=== PATIENT | male | born 1940 | race Caucasian/White ===

== ENCOUNTER 2017-04-28 09:15 | Day surgery (SDC) | payer MEDICARE, BC ==
[2017-04-25 15:04] VITALS: BMI 25.9
[~2017-04-28 09:15] MED LIST: LACTATED RINGERS 1,000 ML IV SCH
[2017-04-28 10:20] VITALS: RESP 18; TEMP 98
[2017-04-28] MEDS ORDERED: LIDOCAINE 1% 20 ML VIAL (10MG/ML) FOR IV START INTRADERMA ONE (10:20)
[2017-04-28] MEDS ORDERED: PROPOFOL 10 MG/ML 20 ML VIAL IV ONE (10:50)
--- NOTE | 2017-04-28 11:17 | P.PCN ---
Date of Procedure: 04/28/17 Procedure(s) Performed: BRIEF HISTORY: Patient is a 77-year-old pleasant white male, scheduled for an elective colonoscopy as a part of evaluation of prior history of colon polyps. His last colostomy was 5 years ago. PROCEDURE PERFORMED: Colonoscopy with snare polypectomy. PREOPERATIVE DIAGNOSIS: history of colon polyps. IV sedation per Anesthesia. PROCEDURE: After informed consent was obtained, the patient, was brought into the endoscopy unit. IV sedation was administered by Anesthesia under continuous monitoring. Digital rectal examination was normal. Initially the Olympus CF- 160 flexible video colonoscope was then inserted in the rectum, gradually advanced into the cecum without any difficulty. Careful examination was performed as the scope was gradually being withdrawn. Ileocecal valve and the appendiceal orifice were visualized and appeared normal. Prep was excellent. In the base of the cecum there was a 5mm polyp that was removed by snare polypectomy. In the ascending colon there were 2 polyps both of which were sessile 1 cm in size removed by snare polypectomy. the rest of the ascending colon, transverse colon, descending colon, sigmoid colon, and rectum appeared normal.in the descending colon there was a 5 mm sessile polyp removed by snare polypectomy. Retroflexion was performed in the rectum and no lesions were seen. The patient tolerated the procedure well. IMPRESSION: 5 mm cecal polyp status post polypectomy. 1 cm 2 sessile ascending colon polyps status post polypectomy 5 mm sessile descending colon polyp status post polypectomy RECOMMENDATIONS: Findings of this examination were discussed with the patient as well as his family. He was advised to follow with the biopsy results. If the biopsy shows a tubalar adenoma, he can have a repeat colonoscopy in 3 years.
[2017-04-28 11:47] VITALS: BP 121/58; PULSE 74
== END 2017-04-28 12:09 | disposition home or self-care (01) ==
LOC: ORWHC2ENDO 09:15
PROVIDERS: ATTEND Internal Medicine Gastroenterology
DX: Z12.11 Encounter for screening for malignant neoplasm of colon (principal); D12.2 Benign neoplasm of ascending colon; D12.0 Benign neoplasm of cecum; D12.4 Benign neoplasm of descending colon; Z86.010 Personal history of colon polyps; E78.5 Hyperlipidemia, unspecified; J44.9 Chronic obstructive pulmonary disease, unspecified; C61 Malignant neoplasm of prostate; K21.9 Gastro-esophageal reflux disease without esophagitis; F17.210 Nicotine dependence, cigarettes, uncomplicated; Z79.82 Long term (current) use of aspirin; Z79.899 Other long term (current) drug therapy; Z79.891 Long term (current) use of opiate analgesic
CPT/HCPCS: 88305; 45385; J2704

== ENCOUNTER 2017-10-14 15:40 | Inpatient (IN) | payer MEDICARE, BC ==
[2017-10-14] MEDS ORDERED: SODIUM CHLORIDE 0.9% 500 ML IV STA (15:49)
--- NOTE | 2017-10-14 15:51 | ED ---
General Adult HPI - General Stated complaint: Memory loss Time Seen by Provider: 10/14/17 15:40 Source: RN notes reviewed - History of Present Illness Initial comments: This is a 77-year-old male who presents emergency Department with his . states at about 1:30 she was talking to him and he had no recollection of anything prior in the day. And he continues to have no recollection of anything that has occurred since that time. states he doesn't remember leaving the house. Patient does not remember the day currently. She has no headache patient denies any pain anywhere. Patient denies any numbness or weakness. states she's had no speech disturbance and does not appear to be any visual disturbance. Patient is able to ambulate without problem. Patient denies any chest pain palpitations difficulty breathing shortness of breath. Patient denies any abdominal pain patient denies nausea vomiting diarrhea. Patient denies any recent fever chills or cough. Patient has had surgery on his left carotid - Related Data Home Medications Medication Instructions Recorded Confirmed Aspirin [Adult Low Dose Aspirin EC] 81 mg PO DAILY 04/25/17 10/14/17 Calcium 1200 / D-3 1000 1 tab PO DAILY 04/25/17 10/14/17 Cholecalciferol [Vitamin D3] 5,000 unit PO DAILY 04/25/17 10/14/17 Cyanocobalamin [Vitamin B-12] 500 mcg PO DAILY 04/25/17 10/14/17 Diazepam [Valium] 5 mg PO HS PRN 04/25/17 10/14/17 Gabapentin [Neurontin] 300 mg PO TID 04/25/17 10/14/17 HYDROcodone/APAP 5-325MG [[place] 1 tab PO HS PRN 04/25/17 10/14/17 5-325] Hydrocodone Bitartrate [Hysingla 20 mg PO DAILY 04/25/17 10/14/17 ER] Multivitamins, Thera [Multivitamin 1 tab PO DAILY 04/25/17 10/14/17 (formulary)] Ranitidine HCl [Zantac] 300 mg PO HS 04/25/17 10/14/17 Simvastatin [Zocor] 20 mg PO HS 04/25/17 10/14/17 Allergies Allergy/AdvReac Type Severity Reaction Status Date / Time No Known Allergies Allergy Verified 10/14/17 16:07 Review of Systems ROS Statement: Those systems with pertinent positive or pertinent negative responses have been documented in the HPI. ROS Other: All systems not noted in ROS Statement are negative. Past Medical History Past Medical History: Cancer, COPD, GERD/Reflux Additional Past Medical History / Comment(s): HX OF PROSTATE CANCER., CHRONIC BACK PAIN & SPASMS, RECEIVES INJECTIONS FOR PAIN FROM DR ABRAHAM., NUMBNESS BOTH LEGS. History of Any Multi-Drug Resistant Organisms: None Reported Past Surgical History: Back Surgery, Prostate Surgery Past Anesthesia/Blood Transfusion Reactions: No Reported Reaction Past Psychological History: No Psychological Hx Reported Smoking Status: Current every day smoker Past Alcohol Use History: None Reported Additional Past Alcohol Use History / Comment(s): SMOKES 1/2 PPD, (DOWN FROM 1 PPD), SMOKING SINCE 11 YEARS OLD (SMOKING 69 YEARS) Past Drug Use History: None Reported - Past Family History Mother Family Medical History: No Reported History General Exam - General Exam Comments Initial Comments: GENERAL: Patient is well-developed and well-nourished. Patient is nontoxic and well- hydrated and is in no acute distress. ENT: Neck is soft and supple. No significant lymphadenopathy is noted. Oropharynx is clear. Moist mucous membranes. Neck has full range of motion without eliciting any pain. EYES: The sclera were anicteric and conjunctiva were pink and moist. Extraocular movements were intact and pupils were equal round and reactive to light. Eyelids were unremarkable. PULMONARY: Unlabored respirations. Good breath sounds bilaterally. No audible rales rhonchi or wheezing was noted. CARDIOVASCULAR: There is a regular rate and rhythm without any murmurs gallops or rubs. ABDOMEN: Soft and nontender with normal bowel sounds. No palpable organomegaly was noted. There is no palpable pulsatile mass. SKIN: Skin is clear with no lesions or rashes and otherwise unremarkable. NEUROLOGIC: Patient is alert and oriented 2. Cranial nerves II through XII are grossly intact. Motor and sensory are also intact. Normal speech, volume and content. Symmetrical smile. Patient has no memory of the date or any event that has occurred today. MUSCULOSKELETAL: Normal extremities with adequate strength and full range of motion. No lower extremity swelling or edema. No calf tenderness. LYMPHATICS: No significant lymphadenopathy is noted PSYCHIATRIC: Normal psychiatric evaluation. Course Vital Signs 10/14/17 15:46 Temperature 98.2 F Pulse Rate 76 Respiratory 18 Rate Blood Pressure 206/91 O2 Sat by Pulse 98 Oximetry Medical Decision Making - Medical Decision Making I spoke with and he did not want us to call a code stroke because the NIH scale is only 1. EKG shows a sinus rhythm at 73 bpm LA interval is 214 QRS is 96 QT interval 418 QTC is 460. Patient's EKG shows no ST segment elevation or depression or T wave abnormalities are noted. Patient's CT of the brain shows no acute abnormality. I spoke with Dr. Vilchis I admitted the patient I wrote admitting orders I consult the neurology - Lab Data Result diagrams: 10/14/17 16:02 10/14/17 16:02 Lab Results 10/14/17 10/14/17 10/14/17 Range/Units 15:54 16:02 16:02 WBC 6.7 (3.8-10.6) k/uL RBC 5.15 (4.30-5.90) m/uL Hgb 16.1 (13.0-17.5) gm/dL Hct 47.9 (39.0-53.0) % MCV 93.1 (80.0-100.0) fL MCH 31.3 (25.0-35.0) pg MCHC 33.7 (31.0-37.0) g/dL RDW 13.2 (11.5-15.5) % Plt Count 242 (150-450) k/uL Neutrophils % 64 % Lymphocytes % 27 % Monocytes % 4 % Eosinophils % 3 % Basophils % 1 % Neutrophils # 4.3 (1.3-7.7) k/uL Lymphocytes # 1.8 (1.0-4.8) k/uL Monocytes # 0.3 (0-1.0) k/uL Eosinophils # 0.2 (0-0.7) k/uL Basophils # 0.0 (0-0.2) k/uL PT (9.0-12.0) sec INR (<1.2) APTT (22.0-30.0) sec Sodium 142 (137-145) mmol/L Potassium 4.3 (3.5-5.1) mmol/L Chloride 107 (98-107) mmol/L Carbon Dioxide 23 (22-30) mmol/L Anion Gap 12 mmol/L BUN 10 (9-20) mg/dL Creatinine 0.60 L (0.66-1.25) mg/dL Est GFR (CKD-EPI)AfAm >90 (>60 ml/min/1.73 sqM) Est GFR (CKD-EPI)NonAf >90 (>60 ml/min/1.73 sqM) Glucose 84 (74-99) mg/dL POC Glucose (mg/dL) 83 (75-99) mg/dL POC Glu [employer] Mckenzie Mederos Calcium 9.3 (8.4-10.2) mg/dL Total Bilirubin 0.6 (0.2-1.3) mg/dL AST 25 (17-59) U/L ALT 36 (21-72) U/L Alkaline Phosphatase 47 (38-126) U/L Total Protein 6.6 (6.3-8.2) g/dL Albumin 4.2 (3.5-5.0) g/dL 10/14/17 Range/Units 16:02 WBC (3.8-10.6) k/uL RBC (4.30-5.90) m/uL Hgb (13.0-17.5) gm/dL Hct (39.0-53.0) % MCV (80.0-100.0) fL MCH (25.0-35.0) pg MCHC (31.0-37.0) g/dL RDW (11.5-15.5) % Plt Count (150-450) k/uL Neutrophils % % Lymphocytes % % Monocytes % % Eosinophils % % Basophils % % Neutrophils # (1.3-7.7) k/uL Lymphocytes # (1.0-4.8) k/uL Monocytes # (0-1.0) k/uL Eosinophils # (0-0.7) k/uL Basophils # (0-0.2) k/uL PT 10.0 (9.0-12.0) sec INR 1.0 (<1.2) APTT 22.6 (22.0-30.0) sec Sodium (137-145) mmol/L Potassium (3.5-5.1) mmol/L Chloride (98-107) mmol/L Carbon Dioxide (22-30) mmol/L Anion Gap mmol/L BUN (9-20) mg/dL Creatinine (0.66-1.25) mg/dL Est GFR (CKD-EPI)AfAm (>60 ml/min/1.73 sqM) Est GFR (CKD-EPI)NonAf (>60 ml/min/1.73 sqM) Glucose (74-99) mg/dL POC Glucose (mg/dL) (75-99) mg/dL POC Glu [employer] ID Calcium (8.4-10.2) mg/dL Total Bilirubin (0.2-1.3) mg/dL AST (17-59) U/L ALT (21-72) U/L Alkaline Phosphatase (38-126) U/L Total Protein (6.3-8.2) g/dL Albumin (3.5-5.0) g/dL Disposition Clinical Impression: CVA (cerebral vascular accident) Disposition: ADMITTED IP TO THIS HOSP Referrals: Holli Velasquez MD [Primary Care Provider] - 1-2 days Time of Disposition: 16:42
[2017-10-14 15:56] LABS: Glucose,Whole Blood 83 mg/dL (75-99)
[2017-10-14 16:16] LABS: Basophils % (A) 1 %; Eosinophils # (A) 0.2 k/uL (0-0.7); Eosinophils % (A) 3 %; HCT 47.9 % (39.0-53.0); HGB 16.1 gm/dL (13.0-17.5); Lymphocytes # (A) 1.8 k/uL (1.0-4.8); Lymphocytes % (A) 27 %; MCH 31.3 pg (25.0-35.0); MCHC 33.7 g/dL (31.0-37.0); MCV 93.1 fL (80.0-100.0); Mean Platelet Volume 6.6; Monocytes # (A) 0.3 k/uL (0-1.0); Monocytes % (A) 4 %; Neutrophils # (A) 4.3 k/uL (1.3-7.7); Neutrophils % (A) 64 %; Platelet Count 242 k/uL (150-450); RBC 5.15 m/uL (4.30-5.90); RDW 13.2 % (11.5-15.5); WBC 6.7 k/uL (3.8-10.6)
[2017-10-14 16:27] LABS: ALT 36 U/L (21-72); AST 25 U/L (17-59); Albumin 4.2 g/dL (3.5-5.0); Alkaline Phosphatase 47 U/L (38-126); Anion Gap 12 mmol/L; Blood Urea Nitrogen 10 mg/dL (9-20); Calcium 9.3 mg/dL (8.4-10.2); Carbon Dioxide 23 mmol/L (22-30); Chloride 107 mmol/L (98-107); Glucose 84 mg/dL (74-99); Potassium 4.3 mmol/L (3.5-5.1); Sodium 142 mmol/L (137-145); Total Bilirubin 0.6 mg/dL (0.2-1.3); Total Protein 6.6 g/dL (6.3-8.2)
[2017-10-14 16:30] LABS: Partial Thromboplastin Time 22.6 sec (22.0-30.0)
[2017-10-14 16:38] LABS: Creatine Kinase 34 U/L (55-170)
--- NOTE | 2017-10-14 16:42 | CT ---
EXAMINATION TYPE: CT brain wo con for TPA DATE OF EXAM: 10/14/2017 COMPARISON: None HISTORY: Memory changes x [address] DLP: 1083.5 mGycm Automated exposure control for dose reduction was used. TECHNIQUE: CT scan of the head is performed without contrast. FINDINGS: There is no acute intracranial hemorrhage or midline shift identified. There is diffuse v entricular and sulcal prominence consistent with diffuse age-related cerebral atrophy. There is low- attenuation in the periventricular white matter consistent with chronic small vessel ischemic change. The globes and calvarium are intact. IMPRESSION: No acute intracranial hemorrhage or midline shift. There is diffuse age-related cerebra l atrophy and chronic small vessel ischemic change noted.
[2017-10-14 16:51] LABS: Troponin I <0.012 ng/mL (0.000-0.034)
--- NOTE | 2017-10-14 16:58 | CT ---
EXAMINATION TYPE: CT angio head neck DATE OF EXAM: 10/14/2017 HISTORY: Memory changes x 3 hours. COMPARISON: 11/17/[address] DLP: 294.7 mGycm. Automated Exposure Control for Dose Reduction was Utilized. TECHNIQUE: CTA scan of the neck is performed with IV Contrast, patient injected with 65 mL of Isovue M300, axial images are obtained, coronal and sagittal reformatted images are reviewed. Three-D recon structed images are created on an independent workstation and reviewed. FINDINGS: Carotid/Vascular Structures: There is a conventional three-vessel branch pattern of the aortic arch. No hemodynamically significant stenosis is seen of either common carotid artery. At the left carotid bulb there is approximately 40% stenosis. Just distal to the carotid bulb over 9 mm in length there is approximately 60% stenosis. This is due to calcific and noncalcific atheromatou s plaquing. Within the remainder of the left cervical portion of the internal carotid artery there is no hemodynamically significant stenosis. Involving the right carotid bulb there is a focal short segment stenosis at 2 mm in length of approxi mately 60% stenosis. Additionally within the right common carotid artery originating at the takeoff f rom the carotid bulb extending over 6 mm in length there is approximately 50% stenosis from noncalcif ic atheromatous plaquing. Within the remainder of the right cervical portion of the internal carotid artery there is no hemodynamically significant stenosis. There is a very diminutive left vertebral artery with near complete occlusion although some scant shade w is seen throughout the left vertebral artery. Right vertebral artery is patent. There is no focal n arrowing of caliber to suggest focal dissection. [place] is intact. No focal aneurysmal outp ouching of the intracranial vasculature. Other: Visualized portions of the brain is seen on the brain CT of the same day. Moderate centrilobul ar emphysematous changes are seen at the lung apices. Extensive multilevel degenerative change of the cervical spine is noted. IMPRESSION: 1. No significant progression in degree of stenosis of the carotid bulbs or proximal internal carotid arteries in comparison to the prior exam of 2009. 2. 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 3. No evidence of intracranial aneurysm.
--- NOTE | 2017-10-14 20:06 | XR ---
EXAMINATION TYPE: XR chest 2V DATE OF EXAM: 10/14/2017 COMPARISON: 06/10/2010 HISTORY: Altered mental status TECHNIQUE: Frontal and lateral views of the chest are obtained. FINDINGS: There is no focal air space opacity, pleural effusion, or pneumothorax seen. The cardiac silhouette size is within normal limits. The osseous structures are intact. Pulmonary hyperinflatio n relates underlying COPD. Mild multilevel degenerative changes of the thoracic spine are seen. Diffu se osseous demineralization is seen IMPRESSION: No acute cardiopulmonary process.
[2017-10-14] MEDS: ATORVASTATIN 10 MG TAB PO SCH (22:45)
[2017-10-14] MEDS: GABAPENTIN 300 MG CAP PO SCH (22:45)
[2017-10-14] MEDS: FAMOTIDINE 20 MG TAB PO SCH (22:45)
[2017-10-14] MEDS: NICOTINE 21MG/24HR PATCH TRANSDERM SCH (22:46)
[2017-10-14] MEDS: DIAZEPAM 5 MG TAB PO PRN (23:04)
[2017-10-14] MEDS: HYDROcodone/APAP 5-325MG 1 EACH TAB PO PRN (23:04)
[2017-10-15 06:06] LABS: Cholesterol 138 mg/dL (<200); HDL Cholesterol 37 mg/dL (40-60); LDL Cholesterol,Calculated 77 mg/dL (0-99); Triglycerides 119 mg/dL (<150)
[2017-10-15] MEDS: ASPIRIN 81 MG PO SCH (09:14)
[2017-10-15] MEDS: CALCIUM CARB-VIT D 500MG-200UN 1 EACH TAB PO SCH (09:14)
[2017-10-15] MEDS: CHOLECALCIFEROL 1,000 UNIT TAB PO SCH (09:15)
[2017-10-15] MEDS: MULTIVITAMINS, THERA 1 EACH TAB PO SCH (09:15)
[2017-10-15] MEDS: CYANOCOBALAMIN 500 MCG TAB PO SCH (09:15)
[2017-10-15] MEDS: GABAPENTIN 300 MG CAP PO SCH ×3 (09:15→20:37)
[2017-10-15] MEDS: HYDROcodone/APAP 5-325MG 1 EACH TAB PO PRN ×2 (09:15→20:37)
[2017-10-15] MEDS: NICOTINE 21MG/24HR PATCH TRANSDERM SCH (12:03)
[2017-10-15] MEDS ORDERED: ENOXAPARIN 40 MG/0.4 ML SYRINGE SQ STA (12:50)
--- NOTE | 2017-10-15 12:50 | P.HPIM ---
History of Present Illness H&P Date: 10/15/17 Christiano Vega is a 77-year-old male who presented to [facility] Emergency Department with a chief complaint of memory loss. Patient was brought into emergency room by his who stated that her has no recollection of anything that happened during the morning, states that patient woke up took a shower and then he drove her to a friend's house he did not stop for coffee as usual at a gas station and when he arrived with a friend' s house he was very confused and did not know where he was or how he got there, drove patient to emergency room for evaluation, in the emergency room patient stated that he does not remember taking a shower in the morning or driving his car, computed tomography scan of the brain was done and did not reveal any acute abnormality, labs were normal, patient was admitted to telemetry floor for further evaluation, neurology consultation was requested, echocardiogram was ordered, CT angiogram of the head and neck was done in the emergency room and revealed areas of 40-60% stenosis in both carotid arteries, there was 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 Patient has a previous history of right carotid endarterectomy. Besides memory loss for a period of 6-7 hours patient denies any other complaints there is no blurry vision no slurred speech, no difficulty with swallowing food, no numbness or weakness in any of his extremities, and no gait disturbance. On review of systems: There is no fever or chills no headache or dizziness, no chest pain no shortness of breath no cough, no nausea or vomiting no abdominal pain no diarrhea or constipation, no blood in the stools, no burning with urination no frequency or urgency no hematuria. Past Medical History Past Medical History: Cancer, COPD, GERD/Reflux, Hearing Disorder / Deafness, Hyperlipidemia Additional Past Medical History / Comment(s): HX OF PROSTATE CANCER., CHRONIC BACK PAIN & SPASMS, RECEIVES INJECTIONS FOR PAIN FROM DR ABRAHAM., NUMBNESS BOTH LEGS. History of Any Multi-Drug Resistant Organisms: None Reported Past Surgical History: Back Surgery, Prostate Surgery Additional Past Surgical History / Comment(s): Right Carotid Endarectomy Past Anesthesia/Blood Transfusion Reactions: No Reported Reaction Past Psychological History: No Psychological Hx Reported Smoking Status: Current every day smoker Past Alcohol Use History: None Reported Additional Past Alcohol Use History / Comment(s): SMOKES 1/2 PPD, (DOWN FROM 1 PPD), SMOKING SINCE 11 YEARS OLD (SMOKING 69 YEARS) Past Drug Use History: None Reported - Past Family History Mother Family Medical History: Diabetes Mellitus Medications and Allergies Home Medications Medication Instructions Recorded Confirmed Type Aspirin [Adult Low Dose Aspirin EC] 81 mg PO DAILY 04/25/17 10/14/17 History Calcium 1200 / D-3 1000 1 tab PO DAILY 04/25/17 10/14/17 History Cholecalciferol [Vitamin D3] 5,000 unit PO DAILY 04/25/17 10/14/17 History Cyanocobalamin [Vitamin B-12] 500 mcg PO DAILY 04/25/17 10/14/17 History Diazepam [Valium] 5 mg PO HS PRN 04/25/17 10/14/17 History Gabapentin [Neurontin] 300 mg PO TID 04/25/17 10/14/17 History HYDROcodone/APAP 5-325MG [[place] 1 tab PO HS PRN 04/25/17 10/14/17 History 5-325] Hydrocodone Bitartrate [[place] 20 mg PO DAILY 04/25/17 10/14/17 History ER] Multivitamins, Thera [Multivitamin 1 tab PO DAILY 04/25/17 10/14/17 History (formulary)] Ranitidine HCl [Zantac] 300 mg PO HS 04/25/17 10/14/17 History Simvastatin [Zocor] 20 mg PO HS 04/25/17 10/14/17 History Allergies Allergy/AdvReac Type Severity Reaction Status Date / Time No Known Allergies Allergy Verified 10/14/17 16:07 Physical Exam Vitals: Vital Signs Temp Pulse Pulse Resp BP BP BP 10/15/17 11:57 97.2 F L 71 16 167/86 10/15/17 08:54 96.9 F L 67 16 144/93 10/15/17 08:16 10/15/17 04:00 97.0 F L 65 18 142/71 10/15/17 00:00 97.0 F L 69 18 151/83 179/82 10/14/17 20:00 97.3 F L 58 L 18 136/63 10/14/17 17:46 97.8 F 79 16 170/76 10/14/17 17:38 97.8 F 79 16 170/76 10/14/17 17:07 63 18 178/82 10/14/17 15:46 98.2 F 76 18 206/91 BP Pulse Ox 10/15/17 11:57 95 10/15/17 08:54 94 L 10/15/17 08:16 96 10/15/17 04:00 10/15/17 00:00 150/66 96 10/14/17 20:00 96 10/14/17 17:46 97 10/14/17 17:38 97 10/14/17 17:07 98 10/14/17 15:46 98 Intake and Output 10/14/17 10/15/17 10/15/17 22:59 06:59 14:59 Intake Total 410 Balance 410 Intake: IV 10 Invasive Line 1 10 Oral 400 Other: Voiding Method Toilet Toilet Toilet Urinal Urinal # Voids 1 Weight 81.647 kg 79.8 kg In general patient is alert and oriented 3 in no apparent distress HEENT head normocephalic and atraumatic Neck is supple no JVD no goiter no lymphadenopathy Chest exam reveals a few scattered rhonchi no wheezing Cardiac exam reveals regular heart sounds S1 and S2 no gallops no murmurs Abdomen is soft nontender no organomegaly with normal bowel sounds Extremity exam reveals no edema no cyanosis or clubbing Neurological examination: Mental status patient is alert and oriented 3 speech is fluent Cranial nerve II-12 are intact There is no focal motor or sensory deficit Reflexes 2+ symmetric Results CBC & Chem 7: 10/14/17 16:02 10/14/17 16:02 Labs: Abnormal Lab Results - Last 24 Hours (Table) 10/14/17 10/14/17 10/15/17 Range/Units 16:02 16:02 05:38 Creatinine 0.60 L (0.66-1.25) mg/dL Total Creatine Kinase 34 L (55-170) U/L HDL Cholesterol 37 L (40-60) mg/dL Thrombosis Risk Factor Assmnt - Choose All That Apply Any of the Below Risk Factors Present?: Yes Each Factor Represents 1 point: Abnormal pulmonary function (COPD) Other Risk Factors: Yes Each Risk Factor Represents 3 Points: Age 75 years or older Thrombosis Risk Factor Assessment Total Risk Factor Score: 4 Thrombosis Risk Factor Assessment Level: Moderate Risk Assessment and Plan Plan: #1 episode of memory loss lasting 6-7 hours, likely related to transient ischemic attack #2 hypertensive emergency on presentation blood pressure was 206/91 #3 underlying history of hyperlipidemia patient is maintained on Lipitor #4 underlying history of tobacco abuse patient smokes 1 pack per day and has been smoking since age 11 #5 underlying history of chronic back pain with history of back surgery and epidural injections in the back #6 previous history of carotid stenosis status post right carotid endarterectomy #7 previous history of prostate cancer status post prostatectomy #8 previous history of temporal arteritis patient was treated with a course of 1 year of steroids about 4 years ago At this time patient is stable and symptom-free, will check echocardiogram, will monitor on telemetry to rule out atrial fibrillation, neurology consult is ongoing Will add Lovenox subcu for DVT prophylaxis Will add lisinopril 10 mg by mouth daily Patient was counseled in length in regard to smoking cessation and nicotine patch has been ordered Will follow closely
[2017-10-15] MEDS: LISINOPRIL 10 MG TAB PO SCH (13:23)
--- NOTE | 2017-10-15 14:36 | P.CONS ---
History of Present Illness - Reason for Consult Consult date: 10/15/17 Amnestic event - Chief Complaint Transient amnesia - History of Present Illness This is a pleasant 77-year-old male being evaluated by the neurology service for an episode of memory loss. He reports remembering going to take a shower at some point yesterday. After that he remembers nothing until he was brought to the emergency room. History during that period was given by his and relayed to me by the patient today. She said she heard a rack fall in the shower and went to investigate. She does not believe that he fell. He reported no injuries. From that point on he has no recollection but he continued to function. He got dressed, they drove to a family member's house, and they stopped at a store. A family member noticed that he was not acting right and not remembering what happened during the day so he was brought to the [facility] emergency room. CT of the brain showed no acute intracranial abnormalities. It did show chronic small vessel ischemic changes. CTA of the neck showed bilateral stenosis which was unchanged from an exam of 2009. He does have a history of carotid endarterectomy. Laboratory exam was relatively normal. His EKG was relatively normal. His blood pressure was elevated. He has good memory and recall of events prior to this episode and since the episode. He denies any headache or other focal neurological symptoms. It's time my exam he is resting comfortably in bed in no acute distress. Review of Systems All systems: negative Constitutional: Reports as per HPI Past Medical History Past Medical History: Cancer, COPD, GERD/Reflux, Hearing Disorder / Deafness, Hyperlipidemia Additional Past Medical History / Comment(s): HX OF PROSTATE CANCER., CHRONIC BACK PAIN & SPASMS, RECEIVES INJECTIONS FOR PAIN FROM DR ABRAHAM., NUMBNESS BOTH LEGS. History of Any Multi-Drug Resistant Organisms: None Reported Past Surgical History: Back Surgery, Prostate Surgery Additional Past Surgical History / Comment(s): Right Carotid Endarectomy Past Anesthesia/Blood Transfusion Reactions: No Reported Reaction Past Psychological History: No Psychological Hx Reported Smoking Status: Current every day smoker Past Alcohol Use History: None Reported Additional Past Alcohol Use History / Comment(s): SMOKES 1/2 PPD, (DOWN FROM 1 PPD), SMOKING SINCE 11 YEARS OLD (SMOKING 69 YEARS) Past Drug Use History: None Reported - Past Family History Mother Family Medical History: Diabetes Mellitus Medications and Allergies Home Medications Medication Instructions Recorded Confirmed Type Aspirin [Adult Low Dose Aspirin EC] 81 mg PO DAILY 04/25/17 10/14/17 History Calcium 1200 / D-3 1000 1 tab PO DAILY 04/25/17 10/14/17 History Cholecalciferol [Vitamin D3] 5,000 unit PO DAILY 04/25/17 10/14/17 History Cyanocobalamin [Vitamin B-12] 500 mcg PO DAILY 04/25/17 10/14/17 History Diazepam [Valium] 5 mg PO HS PRN 04/25/17 10/14/17 History Gabapentin [Neurontin] 300 mg PO TID 04/25/17 10/14/17 History HYDROcodone/APAP 5-325MG [[place] 1 tab PO HS PRN 04/25/17 10/14/17 History 5-325] Hydrocodone Bitartrate [[place]ysingla 20 mg PO DAILY 04/25/17 10/14/17 History ER] Multivitamins, Thera [Multivitamin 1 tab PO DAILY 04/25/17 10/14/17 History (formulary)] Ranitidine HCl [Zantac] 300 mg PO HS 04/25/17 10/14/17 History Simvastatin [Zocor] 20 mg PO HS 04/25/17 10/14/17 History Allergies Allergy/AdvReac Type Severity Reaction Status Date / Time No Known Allergies Allergy Verified 10/14/17 16:07 Physical Exam Vitals: Vital Signs Temp Pulse Pulse Resp BP BP BP 10/15/17 11:57 97.2 F L 71 16 167/86 10/15/17 08:54 96.9 F L 67 16 144/93 10/15/17 08:16 10/15/17 04:00 97.0 F L 65 18 142/71 10/15/17 00:00 97.0 F L 69 18 151/83 179/82 10/14/17 20:00 97.3 F L 58 L 18 136/63 10/14/17 17:46 97.8 F 79 16 170/76 10/14/17 17:38 97.8 F 79 16 170/76 10/14/17 17:07 63 18 178/82 10/14/17 15:46 98.2 F 76 18 206/91 BP Pulse Ox 10/15/17 11:57 95 10/15/17 08:54 94 L 10/15/17 08:16 96 10/15/17 04:00 10/15/17 00:00 150/66 96 10/14/17 20:00 96 10/14/17 17:46 97 10/14/17 17:38 97 10/14/17 17:07 98 10/14/17 15:46 98 Intake and Output 10/14/17 10/15/17 10/15/17 22:59 06:59 14:59 Intake Total 770 Balance 770 Intake: IV 10 Invasive Line 1 10 Oral 760 Other: Voiding Method Toilet Toilet Toilet Urinal Urinal # Voids 1 Weight 81.647 kg 79.8 kg - Constitutional General appearance: average body habitus, cooperative, no acute distress - EENT Eyes: no abnormal pupil, EOMI, PERRLA, no ptosis ENT: hearing grossly normal - Neck Neck: normal ROM, no rigidity - Respiratory Respiratory: negative: prolonged expiration, prolonged inspiration - Cardiovascular Rhythm: regular - Gastrointestinal General gastrointestinal: no distended, no tenderness - Neurologic The patient is alert awake and oriented 3. Speech and language are normal. There is no facial asymmetry. Strength is 5 out of 5 in bilateral upper and lower extremities. There is no sensory deficit. No tremors or seizures are seen. Cranial nerves II through XII are intact globally. Short-term memory recall is intact. Distant memory recall is intact. He still has no recall of any details of the episode. Results CBC & Chem 7: 10/14/17 16:02 10/14/17 16:02 Labs: Abnormal Lab Results - Last 24 Hours (Table) 10/14/17 10/14/17 10/15/17 Range/Units 16:02 16:02 05:38 Creatinine 0.60 L (0.66-1.25) mg/dL Total Creatine Kinase 34 L (55-170) U/L HDL Cholesterol 37 L (40-60) mg/dL Assessment and Plan (1) Transient global amnesia Current Visit: Yes Status: Acute Code(s): G45.4 - TRANSIENT GLOBAL AMNESIA SNOMED Code(s): 658114565 (2) Hypertension Current Visit: Yes Status: Chronic Code(s): I10 - ESSENTIAL (PRIMARY) HYPERTENSION SNOMED Code(s): 92246738 (3) Hyperlipidemia Current Visit: Yes Status: Chronic Code(s): E78.5 - HYPERLIPIDEMIA, UNSPECIFIED SNOMED Code(s): 00384769 (4) Carotid stenosis Current Visit: Yes Status: Chronic Code(s): I65.29 - OCCLUSION AND STENOSIS OF UNSPECIFIED CAROTID ARTERY SNOMED Code(s): 34482311 (5) History of prostate cancer Current Visit: Yes Status: Chronic Code(s): Z85.46 - PERSONAL HISTORY OF MALIGNANT NEOPLASM OF PROSTATE SNOMED Code(s): 267899231 (6) Temporal arteritis Current Visit: Yes Status: Chronic Code(s): M31.6 - OTHER GIANT CELL ARTERITIS SNOMED Code(s): 805390617 Plan: The patient has had an episode of transient global amnesia. There have been no focal neurological symptoms otherwise. I will order an EEG. CT showed no acute abnormalities. I will order an MRI of the brain to rule out any hippocampal lesions. I will do it with contrast given his history of prostate cancer. Otherwise continue the rest your workup. He will continue on aspirin and Lipitor as prescribed. Continue neurological checks. I will continue to follow and make recommendations based on the above studies. Smoking cessation is highly recommended. I have performed a history and physical on the above patient. I have reviewed the above note, and agree.
[2017-10-15] MEDS: DIAZEPAM 5 MG TAB PO PRN (20:37)
[2017-10-15] MEDS: FAMOTIDINE 20 MG TAB PO SCH (20:37)
[2017-10-15] MEDS: ATORVASTATIN 10 MG TAB PO SCH (20:37)
[2017-10-16 06:30] LABS: Cholesterol 156 mg/dL (<200); HDL Cholesterol 36 mg/dL (40-60); LDL Cholesterol,Calculated 94 mg/dL (0-99); Triglycerides 130 mg/dL (<150)
[2017-10-16 08:36] LABS: Basophils % (A) 0 %; Eosinophils # (A) 0.2 k/uL (0-0.7); Eosinophils % (A) 3 %; HCT 46.5 % (39.0-53.0); HGB 15.5 gm/dL (13.0-17.5); Lymphocytes # (A) 1.9 k/uL (1.0-4.8); Lymphocytes % (A) 33 %; MCHC 33.4 g/dL (31.0-37.0); MCV 92.6 fL (80.0-100.0); Mean Platelet Volume 6.6; Monocytes # (A) 0.3 k/uL (0-1.0); Monocytes % (A) 5 %; Neutrophils # (A) 3.3 k/uL (1.3-7.7); Neutrophils % (A) 57 %; Platelet Count 256 k/uL (150-450); RBC 5.02 m/uL (4.30-5.90); RDW 12.8 % (11.5-15.5); WBC 5.7 k/uL (3.8-10.6)
[2017-10-16 08:44] LABS: Anion Gap 10 mmol/L; Blood Urea Nitrogen 13 mg/dL (9-20); Calcium 9.1 mg/dL (8.4-10.2); Carbon Dioxide 26 mmol/L (22-30); Chloride 105 mmol/L (98-107); Glucose 88 mg/dL (74-99); Sodium 141 mmol/L (137-145)
[2017-10-16] MEDS: NICOTINE 21MG/24HR PATCH TRANSDERM SCH (09:05)
[2017-10-16] MEDS: CHOLECALCIFEROL 1,000 UNIT TAB PO SCH (09:07)
[2017-10-16] MEDS: ASPIRIN 81 MG PO SCH (09:07)
[2017-10-16] MEDS: CALCIUM CARB-VIT D 500MG-200UN 1 EACH TAB PO SCH (09:08)
[2017-10-16] MEDS: CYANOCOBALAMIN 500 MCG TAB PO SCH (09:08)
[2017-10-16] MEDS: GABAPENTIN 300 MG CAP PO SCH ×3 (09:08→19:57)
[2017-10-16] MEDS: LISINOPRIL 10 MG TAB PO SCH (09:09)
[2017-10-16] MEDS: MULTIVITAMINS, THERA 1 EACH TAB PO SCH (09:09)
[2017-10-16] MEDS: HYDROcodone/APAP 5-325MG 1 EACH TAB PO PRN ×3 (09:19→23:25)
--- NOTE | 2017-10-16 10:06 | P.PN ---
Subjective Progress Note Date: 10/16/17 Christiano Vega is a 77-year-old male who presented to [facility] Emergency Department with a chief complaint of memory loss. Patient was brought into emergency room by his who stated that her has no recollection of anything that happened during the morning, states that patient woke up took a shower and then he drove her to a friend's house he did not stop for coffee as usual at a gas station and when he arrived with a friend' s house he was very confused and did not know where he was or how he got there, drove patient to emergency room for evaluation, in the emergency room patient stated that he does not remember taking a shower in the morning or driving his car, computed tomography scan of the brain was done and did not reveal any acute abnormality, labs were normal, patient was admitted to telemetry floor for further evaluation, neurology consultation was requested, echocardiogram was ordered, CT angiogram of the head and neck was done in the emergency room and revealed areas of 40-60% stenosis in both carotid arteries, there was 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 Patient has a previous history of right carotid endarterectomy. Besides memory loss for a period of 6-7 hours patient denies any other complaints there is no blurry vision no slurred speech, no difficulty with swallowing food, no numbness or weakness in any of his extremities, and no gait disturbance. On 10/16/2017 Patient is currently resting comfortably in bed with no complaints. Patient is A & O x 3 memory appears to be intact. No neuro deficits noted. EEG and MRI have been ordered per neurology services. Patient currently on aspirin and Lipitor. 2-D echo also ordered. Patient currently sinus rhythm. Patient denies chest pain or shortness of breath at this time. Denies nausea, vomiting, or diarrhea Objective - Vital Signs Vital signs: Vital Signs Temp 96.9 F L 10/16/17 08:00 Pulse 64 10/16/17 08:00 Resp 18 10/16/17 08:00 BP 115/56 10/16/17 08:00 Pulse Ox 93 L 10/16/17 08:00 Intake & Output 10/15/17 10/16/17 10/16/17 18:59 06:59 18:59 Intake Total 1180 240 Balance 1180 240 Weight 79.7 kg Intake: IV 20 Invasive Line 1 20 Oral 1160 240 Other: Voiding Method Toilet Toilet # Voids 1 1 - Exam Head normocephalic Neck supple Lungs clear to auscultation bilaterally no wheezing or crackles Heart regular rate and rhythm S1-S2, no rub or gallop Abdomen is soft nontender nondistended positive bowel sounds no hepatosplenomegaly Extremities no edema Neuro Mental status patient is alert and oriented 3 speech is fluent Cranial nerve II-12 are intact There is no focal motor or sensory deficit Reflexes 2+ symmetric - Labs CBC & Chem 7: 10/16/17 05:46 10/16/17 05:46 Labs: Abnormal Lab Results - Last 24 Hours (Table) 10/16/17 Range/Units 05:46 HDL Cholesterol 36 L (40-60) mg/dL Assessment and Plan Assessment: #1 episode of memory loss lasting 6-7 hours, likely related to transient ischemic attack. CT of brain completed showing no acute intracranial hemorrhage or midline shift. There is diffuse age-related cerebral atrophy and chronic small vessel ischemic changes noted. CTA of the neck and head completed showing no significant progression in degree of stenosis of the carotid bulbs and proximal internal carotid arteries compared to prior exam in 2009. 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 Neurology has been consulted. MRI and EEG have been ordered. 2-D echocardiogram has been ordered. #2 hypertensive emergency on presentation blood pressure was 206/91. Patient on lisinopril. Blood pressure 115/56. #3 underlying history of hyperlipidemia patient is maintained on Lipitor #4 underlying history of tobacco abuse patient smokes 1 pack per day and has been smoking since age 11. Patient currently on nicotine patch. Patient plans to quit. Anticipate nicotine patch prescription upon discharge #5 underlying history of chronic back pain with history of back surgery and epidural injections in the back #6 previous history of carotid stenosis status post right carotid endarterectomy #7 previous history of prostate cancer status post prostatectomy #8 previous history of temporal arteritis patient was treated with a course of 1 year of steroids about 4 years ago Will add Lovenox subcu for DVT prophylaxis, Pepcid for GI prophylaxis Patient was counseled in length in regard to smoking cessation and nicotine patch has been ordered I performed an examination of the patient and discussed their management with the Nurse Practitioner. I have reviewed the Nurse Practitioner's notes and agree with the documented findings and plan of care
--- NOTE | 2017-10-16 13:49 | MR ---
EXAMINATION TYPE: MR brain wo/w con DATE OF EXAM: 10/16/2017 COMPARISON: CT 10/14/2017 HISTORY: 77-year-old male amnestic event/history of prostate CA TECHNIQUE: Multiplanar, multisequence images of the brain and brainstem were acquired before and aft er administration of 7.5 mL IV Gadavist. Diffusion weighted imaging is performed. FINDINGS: No evidence for acute infarction, hemorrhage, mass, mass effect, midline shift, herniation, effacemen t of basal cisterns, or extra-axial fluid collection. The ventricles are age-appropriate. Mild to moderate generalized supratentorial volume loss. T2/FLAIR weighted sequences show no white matter signal abnormality The right vertebral artery is dominant. Major intracranial flow voids appear intact. Midline structures demonstrate normal morphology. The craniocervical junction is normal. Post contrast images demonstrate no evidence of pathologic enhancement. Dural venous sinuses are pat ent. Trapped fluid in the left mastoid air cells. Trace mucosal thickening ethmoid air cells and rightward nasal septal deviation. Globes are intact. IMPRESSION: 1. No acute intracranial abnormality seen. No evidence for brain metastases. 2. Age-related mild to moderate generalized atrophy. 3. Trapped fluid in the left mastoid air cells. Correlate for any mastoid pain to exclude mastoiditis .
--- NOTE | 2017-10-16 15:35 | P.PN ---
Subjective Progress Note Date: 10/16/17 Principal diagnosis: Transient amnesia This a pleasant 77-year-old male continue be evaluated by the neurology service for transient amnestic event. Recall that he had a period of amnesia lasting a few hours where he was fully functional. He drove his car, he went to the store, and went to a family member's house. The next thing he remembers was being in the emergency room. He has had no focal neurological deficits. He continues to be asymptomatic. Initial CT of the brain showed no acute intracranial abnormalities, did show some chronic small vessel ischemic changes. CT of the neck showed bilateral carotid stenosis unchanged from 2009. History of carotid endarterectomy being followed by cardiovascular. Subsequent MRI of the brain showed no acute intracranial abnormalities. He does have a history of treated prostate cancer, and MRI was done with contrast and shows no evidence for brain metastasis. There was some age-related mild to moderate generalized atrophy and some unrelated Fluid in the left mastoid air cell. He is asymptomatic for mastoiditis. He exhibited no seizure activity. There was no postictal state. With the history given to him by his he went in to take a shower and was acting normal. This is the last thing that he remembers. While he was in the shower she heard a very loud crash which was a shower dive superintendent falling off the wall. She went to the bathroom immediately and he threw open the door and had a wide eyed look on his face. Objective - Vital Signs Vital signs: Vital Signs Temp 96.9 F L 10/16/17 08:00 Pulse 77 10/16/17 12:00 Resp 18 10/16/17 12:00 BP 145/91 10/16/17 12:00 Pulse Ox 94 L 10/16/17 12:00 Intake & Output 10/15/17 10/16/17 10/16/17 18:59 06:59 18:59 Intake Total 1180 480 Balance 1180 480 Weight 79.7 kg Intake: IV 20 Invasive Line 1 20 Oral 1160 480 Other: Voiding Method Toilet Toilet # Voids 1 1 1 - Constitutional General appearance: Present: average body habitus, cooperative, no acute distress - EENT Eyes: Present: EOMI, PERRLA. Absent: abnormal pupil, ptosis ENT: Present: hard of hearing - Neck Neck: Present: normal ROM. Absent: rigidity - Respiratory Respiratory: negative: prolonged expiration, prolonged inspiration - Cardiovascular Rhythm: regular - Gastrointestinal General gastrointestinal: Absent: distended, tenderness - Neurologic Neurologic Comment(s): The patient is alert awake and oriented 3. Speech and language are normal. There is no facial asymmetry. Strength is 5 out of 5 in bilateral upper and lower extremities. There is no sensory deficit. No tremors or seizures are seen. Cranial nerves II through XII are intact globally, except he wears hearing aids. - Labs CBC & Chem 7: 10/16/17 05:46 10/16/17 05:46 Labs: Abnormal Lab Results - Last 24 Hours (Table) 10/16/17 Range/Units 05:46 HDL Cholesterol 36 L (40-60) mg/dL Assessment and Plan (1) Transient global amnesia Current Visit: Yes Status: Resolved Code(s): G45.4 - TRANSIENT GLOBAL AMNESIA SNOMED Code(s): 255631101 (2) Hypertension Current Visit: Yes Status: Chronic Code(s): I10 - ESSENTIAL (PRIMARY) HYPERTENSION SNOMED Code(s): 17434523 (3) Hyperlipidemia Current Visit: Yes Status: Chronic Code(s): E78.5 - HYPERLIPIDEMIA, UNSPECIFIED SNOMED Code(s): 75827355 (4) Carotid stenosis Current Visit: Yes Status: Chronic Code(s): I65.29 - OCCLUSION AND STENOSIS OF UNSPECIFIED CAROTID ARTERY SNOMED Code(s): 63831767 (5) History of prostate cancer Current Visit: Yes Status: Chronic Code(s): Z85.46 - PERSONAL HISTORY OF MALIGNANT NEOPLASM OF PROSTATE SNOMED Code(s): 122034415 (6) Temporal arteritis Current Visit: Yes Status: Chronic Code(s): M31.6 - OTHER GIANT CELL ARTERITIS SNOMED Code(s): 898180728 Plan: The patient has had an episode of transient global amnesia. There have been no focal neurological symptoms otherwise. His EEG has been performed. CT and MRI of the brain showed no area of ischemia or other lesions. These episodes can be idiopathic. They can also be triggered by sudden exposure to cold water or a shocking stimulus as with his history of the episode starting in the shower after a loud crash from a falling shower senior counsel commercial. However, a transient ischemic attack cannot be ruled out. He will continue aspirin and Lipitor as prescribed. continue follow-up routinely with cardiovascular for his known carotid stenosis. Smoking cessation is highly recommended. the patient was advised that in the [facility] a person who has a alteration of consciousness should not drive for a period of 6 months. He voices understanding. This gentleman is a patient of ours and we will follow him up in the outpatient setting. If need be he can be discharged and we will go over his EEG in the office. I have performed a history and physical on the above patient. I have reviewed the above note, and agree.
--- NOTE | 2017-10-16 17:48 | ECHOF ---
Referral Reason:possible stroke MEASUREMENTS -------- HEIGHT: 152.4 cm WEIGHT: 79.4 kg BP: 113/51 IVSd: 1.2 cm (0.6 - 1.1) LVIDd: 4.4 cm (3.9 - 5.3) LVPWd: 1.1 cm (0.6 - 1.1) IVSs: 1.5 cm LVIDs: 3.7 cm LVPWs: 1.1 cm LA Diam: 3.4 cm (2.7 - 3.8) RVIDd: 3.6 cm (< 3.3) Ao Diam: 3.9 cm (2.0 - 3.7) LA Diam: 2.6 cm (2.7 - 3.8) AV Cusp: 1.8 cm (1.5 - 2.6) EPSS: 0.6 cm MV E Steven: 0.55 m/s MV DecT: 320 ms MV A Steven: 0.66 m/s MV E/A Ratio: 0.84 RAP: 5.00 mmHg RVSP: 12.89 mmHg MV EF SLOPE: 151.70 mm/s (70 - 150) MV EXCURSION: 26.92 mm (> 18.000) FINDINGS -------- Sinus rhythm. This was a technically adequate study. The left ventricular size is normal. There is borderline concentric left ventricular hypertrophy. Overall left ventricular systolic function is normal with, an EF between 55 - 60 %. The right ventricle is moderately enlarged. The left atrial size is normal. The right atrial size is normal. There is mild aortic valve sclerosis. There is no evidence of aortic regurgitation. Mild mitral annular calcification present. Mild mitral regurgitation is present. Mild tricuspid regurgitation present. There is no evidence of pulmonary hypertension. The right v entricular systolic pressure, as measured by Doppler, is 12.89mmHg. There is no pulmonic regurgitation present. The aortic root size is normal. Echo free space represents a pericardial fat pad. CONCLUSIONS -------- 1. The left ventricular size is normal. 2. There is borderline concentric left ventricular hypertrophy. 3. Overall left ventricular systolic function is normal with, an EF between 55 - 60 %. 4. The right ventricle is moderately enlarged. 5. The left atrial size is normal. 6. The right atrial size is normal. 7. There is mild aortic valve sclerosis. 8. Mild mitral annular calcification present. 9. Mild mitral regurgitation is present. 10. Mild tricuspid regurgitation present. 11. There is no evidence of pulmonary hypertension. 12. The right ventricular systolic pressure, as measured by Doppler, is 12.89mmHg. 13. There is no pulmonic regurgitation present. 14. The aortic root size is normal. 15. Echo free space represents a pericardial fat pad. CUTTER FIRST: Marianne Pimentel RDCS
[2017-10-16] MEDS: DIAZEPAM 5 MG TAB PO PRN (19:57)
[2017-10-16] MEDS: FAMOTIDINE 20 MG TAB PO SCH (19:57)
[2017-10-16] MEDS: ATORVASTATIN 10 MG TAB PO SCH (19:57)
[2017-10-17 06:46] LABS: Basophils % (A) 1 %; Eosinophils # (A) 0.2 k/uL (0-0.7); Eosinophils % (A) 3 %; HCT 44.1 % (39.0-53.0); HGB 15.1 gm/dL (13.0-17.5); Lymphocytes # (A) 1.7 k/uL (1.0-4.8); Lymphocytes % (A) 27 %; MCH 31.7 pg (25.0-35.0); MCHC 34.3 g/dL (31.0-37.0); MCV 92.5 fL (80.0-100.0); Mean Platelet Volume 6.4; Monocytes # (A) 0.3 k/uL (0-1.0); Monocytes % (A) 5 %; Neutrophils % (A) 63 %; Platelet Count 211 k/uL (150-450); RBC 4.77 m/uL (4.30-5.90); WBC 6.3 k/uL (3.8-10.6)
[2017-10-17 06:56] LABS: Anion Gap 11 mmol/L; Blood Urea Nitrogen 16 mg/dL (9-20); Carbon Dioxide 26 mmol/L (22-30); Chloride 105 mmol/L (98-107); Glucose 96 mg/dL (74-99); Potassium 3.9 mmol/L (3.5-5.1); Sodium 142 mmol/L (137-145)
[2017-10-17] MEDS: NICOTINE 21MG/24HR PATCH TRANSDERM SCH (08:46)
[2017-10-17] MEDS: LISINOPRIL 10 MG TAB PO SCH (08:46)
[2017-10-17] MEDS: CYANOCOBALAMIN 500 MCG TAB PO SCH (08:47)
[2017-10-17] MEDS: ASPIRIN 81 MG PO SCH (08:47)
[2017-10-17] MEDS: MULTIVITAMINS, THERA 1 EACH TAB PO SCH (08:47)
[2017-10-17] MEDS: HYDROcodone/APAP 5-325MG 1 EACH TAB PO PRN (08:47)
[2017-10-17] MEDS: CHOLECALCIFEROL 1,000 UNIT TAB PO SCH (08:47)
[2017-10-17] MEDS: CALCIUM CARB-VIT D 500MG-200UN 1 EACH TAB PO SCH (08:47)
[2017-10-17] MEDS: GABAPENTIN 300 MG CAP PO SCH (08:47)
[2017-10-17 09:55] VITALS: BP 123/56; PULSE 67; RESP 18; TEMP 97
--- NOTE | 2017-10-17 11:04 | P.DS ---
Providers Date of admission: 10/14/17 16:44 Expected date of discharge: 10/17/17 Attending physician: Kim Vilchis Consults: 10/14/17 16:51 Consult Physician Routine Consulting Provider: Jennifer Shelton Consult Reason/Comments: CVA Do you want consulting provider notified?: Yes Primary care physician: [facility] Course: Discharge diagnosis #1 episode of memory loss lasting 6-7 hours, likely related to transient ischemic attack. CT of brain completed showing no acute intracranial hemorrhage or midline shift. There is diffuse age-related cerebral atrophy and chronic small vessel ischemic changes noted. CTA of the neck and head completed showing no significant progression in degree of stenosis of the carotid bulbs and proximal internal carotid arteries compared to prior exam in 2009. 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 Neurology has been consulted. MRI completed showing no acute intracranial abnormality, no evidence for brain metastasis. Age-related mild to moderate generalized atrophy. Trapped fluid in the left mastoid air cells. Correlate for any mastoid pain to exclude mastoiditis. 2-D echo completed showing EF between 55-60% and sinus rythym. EEG has been taken. Per Neurology patient will be followed outpatient and will go over EEG results in the office. Patient will follow-up with Dr. Roca outpatient for trapped fluid in the left mastoid air cells. #2 hypertensive emergency on presentation blood pressure was 206/91. Patient on lisinopril. Blood pressure 115/56. #3 underlying history of hyperlipidemia patient is maintained on Lipitor #4 underlying history of tobacco abuse patient smokes 1 pack per day and has been smoking since age 11. Patient currently on nicotine patch. Patient plans to quit. Nicotine patch prescribed upon discharge #5 underlying history of chronic back pain with history of back surgery and epidural injections in the back #6 previous history of carotid stenosis status post right carotid endarterectomy #7 previous history of prostate cancer status post prostatectomy #8 previous history of temporal arteritis patient was treated with a course of 1 year of steroids about 4 years ago Hospital course Christiano Vega is a 77-year-old male who presented to [facility] Emergency [facility] with a chief complaint of memory loss. Patient was brought into emergency room by his who stated that her has no recollection of anything that happened during the morning, states that patient woke up took a shower and then he drove her to a friend's house he did not stop for coffee as usual at a gas station and when he arrived with a friend' s house he was very confused and did not know where he was or how he got there, drove patient to emergency room for evaluation, in the emergency room patient stated that he does not remember taking a shower in the morning or driving his car, computed tomography scan of the brain was done and did not reveal any acute abnormality, labs were normal, patient was admitted to telemetry floor for further evaluation, neurology consultation was requested, echocardiogram was ordered, CT angiogram of the head and neck was done in the emergency room and revealed areas of 40-60% stenosis in both carotid arteries, there was 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 Patient has a previous history of right carotid endarterectomy. Besides memory loss for a period of 6-7 hours patient denies any other complaints there is no blurry vision no slurred speech, no difficulty with swallowing food, no numbness or weakness in any of his extremities, and no gait disturbance. On 10/16/2017 Patient is currently resting comfortably in bed with no complaints. Patient is A & O x 3 memory appears to be intact. No neuro deficits noted. EEG and MRI have been ordered per neurology services. Patient currently on aspirin and Lipitor. 2-D echo also ordered. Patient currently sinus rhythm. Patient denies chest pain or shortness of breath at this time. Denies nausea, vomiting, or diarrhea On 10/17/2017 patient is currently resting comfortably in bed with no complaints. no neuro deficits noted. Patient A & O 3 memory appears to be intact. Patient will be DC'd home on statin and aspirin. Will follow-up outpatient to review EEG results. Patient also will be referred to Dr. Roca to follow-up for trapped fluid in the left mastoid air cells. I performed an examination of the patient and discussed their management with the Nurse Practitioner. I have reviewed the Nurse Practitioner's notes and agree with the documented findings and plan of care Patient Condition at Discharge: Stable Plan - Discharge Summary Discharge Rx Participant: No New Discharge Prescriptions: New Nicotine 21Mg/24Hr Patch [Habitrol] 1 patch TRANSDERM DAILY #30 patch Continue Hydrocodone Bitartrate [Hysingla ER] 20 mg PO DAILY Ranitidine HCl [Zantac] 300 mg PO HS Multivitamins, Thera [Multivitamin (formulary)] 1 tab PO DAILY Cholecalciferol [Vitamin D3] 5,000 unit PO DAILY Simvastatin [Zocor] 20 mg PO HS HYDROcodone/APAP 5-325MG [Dilworth 5-325] 1 tab PO HS PRN PRN Reason: Pain Gabapentin [Neurontin] 300 mg PO TID Cyanocobalamin [Vitamin B-12] 500 mcg PO DAILY Diazepam [Valium] 5 mg PO HS PRN PRN Reason: Muscle Spasm Calcium 1200 / D-3 1000 1 tab PO DAILY Aspirin [Adult Low Dose Aspirin EC] 81 mg PO DAILY Discharge Medication List Aspirin [Adult Low Dose Aspirin EC] 81 mg PO DAILY 04/25/17 [History] Calcium 1200 / D-3 1000 1 tab PO DAILY 04/25/17 [History] Cholecalciferol [Vitamin D3] 5,000 unit PO DAILY 04/25/17 [History] Cyanocobalamin [Vitamin B-12] 500 mcg PO DAILY 04/25/17 [History] Diazepam [Valium] 5 mg PO HS PRN 04/25/17 [History] Gabapentin [Neurontin] 300 mg PO TID 04/25/17 [History] HYDROcodone/APAP 5-325MG [Dilworth 5-325] 1 tab PO HS PRN 04/25/17 [History] Hydrocodone Bitartrate [Hysingla ER] 20 mg PO DAILY 04/25/17 [History] Multivitamins, Thera [Multivitamin (formulary)] 1 tab PO DAILY 04/25/17 [History ] Ranitidine HCl [Zantac] 300 mg PO HS 04/25/17 [History] Simvastatin [Zocor] 20 mg PO HS 04/25/17 [History] Nicotine 21Mg/24Hr Patch [Habitrol] 1 patch TRANSDERM DAILY #30 patch 10/17/17 [ Rx] Follow up Appointment(s)/Referral(s): Holli Velasquez MD [Primary Care Provider] - 10/19/17 1:00 pm Jennifer Shelton MD [STAFF PHYSICIAN] - 1 Week (office to call patient with appointment date and time) Patient Instructions/Handouts: Cigarette Smoking and Your Health (GEN), Cholesterol and Your Health (GEN), Stroke (GEN) Activity/Diet/Wound Care/Special Instructions: diet heart healthy activity as tolerated
== END 2017-10-17 12:26 | disposition home or self-care (01) | DRG 69 ==
LOC: EC 15:40 → 6SEL 16:44
PROVIDERS: ADMIT Internal Medicine; ATTEND Internal Medicine
DX: G45.9 Transient cerebral ischemic attack, unspecified (principal); I16.1 Hypertensive emergency; Z85.46 Personal history of malignant neoplasm of prostate; E78.5 Hyperlipidemia, unspecified; F17.200 Nicotine dependence, unspecified, uncomplicated; H91.90 Unspecified hearing loss, unspecified ear; I10 Essential (primary) hypertension; J44.9 Chronic obstructive pulmonary disease, unspecified; K21.9 Gastro-esophageal reflux disease without esophagitis; Z79.82 Long term (current) use of aspirin; Z83.3 Family history of diabetes mellitus; Z90.79 Acquired absence of other genital organ(s); G45.4 Transient global amnesia; R29.701 NIHSS score 1; Z79.899 Other long term (current) drug therapy; Z79.891 Long term (current) use of opiate analgesic
CPT/HCPCS: 36415; 70450; 70496; 70498; 70553; 71046; 80048; 80053; 80061; 82550; 82553; 84484; 85025; 85610; 85730; 93005; 93306; 94760; 95816